=== PATIENT | male | born 1980 | race African-American/Black ===

== ENCOUNTER 2017-11-10 10:30 | Emergency (ER) | payer OTHER ==
[~2017-11-10] VITALS: Ht 180.3 cm; Wt 179.2 kg
[~2017-11-10 10:30] MED LIST: ANDRODERM1 EACH TD; CLON.1 PO; CYCL10 PO; IBUP800 PO; Keflex500 MG PO; LOSA25 PO; METF500 PO; Norco 5-325 Ta1 EACH PO; PROP10 PO; Zegerid 20 MG1 EACH PO
== END 2017-11-10 12:10 | disposition home or self-care (01) ==
LOC: ER 10:30
DX: S52.022A Displaced fracture of olecranon process without intraarticular extension of left ulna, initial encounter for closed fracture (principal); Z79.84 Long term (current) use of oral hypoglycemic drugs; Z79.899 Other long term (current) drug therapy; I10 Essential (primary) hypertension; Z87.891 Personal history of nicotine dependence; X58.XXXA Exposure to other specified factors, initial encounter
CPT/HCPCS: 73080; 99283

== ENCOUNTER 2018-01-06 12:35 | Day surgery (SDC) | payer OTHER ==
[~2018-01-06] VITALS: Ht 180.3 cm; Wt 176.7 kg
[2018-01-06] MEDS ORDERED: CHOL10002 (14:12)
[2018-01-06] MEDS ORDERED: Zegerid 40 MG1 EACH PO (14:12)
== END 2018-01-06 16:56 | disposition home or self-care (01) ==
LOC: ORSCSDS 12:35
PROVIDERS: Orthopaedic Surgery
PROC: 01N50ZZ Release Median Nerve, Open Approach (ICD-10-PCS; principal; 2018-01-06 15:00)
DX: G56.02 Carpal tunnel syndrome, left upper limb (principal); E11.9 Type 2 diabetes mellitus without complications; I10 Essential (primary) hypertension; F41.8 Other specified anxiety disorders; F31.9 Bipolar disorder, unspecified; Z79.84 Long term (current) use of oral hypoglycemic drugs; Z79.899 Other long term (current) drug therapy; Z87.891 Personal history of nicotine dependence
CPT/HCPCS: 82947; J0171; J0690; J2250; J2405; J3010; J7120

== ENCOUNTER → 2018-02-01 | Outpatient (CLI) | payer OTHER ==
[~2018-02-01] MED LIST changes: +CHOL10002; +Zegerid 40 MG1 EACH PO
[2018-02-06 05:53] LABS: COTININE Negative ng/mL (Cutoff=300)
== END ==
LOC: LAB SRC 10:58 → LAB SHORT 10:58
PROVIDERS: Physician Assistant
DX: E66.01 Morbid (severe) obesity due to excess calories (principal)

== ENCOUNTER 2018-12-07 08:46 | Day surgery (SDC) | payer OTHER ==
[~2018-12-07] VITALS: Ht 180.3 cm; Wt 152.9 kg
[~2018-12-07 08:46] MED LIST changes: +Depo-Testos200 MG/ML IM; +MELO7.5 PO; +METF500C PO; +ZOLOFT20 MG/ML PO
--- NOTE | 2018-12-07 09:08 | NUR ---
History, Chart, Medications and Allergies reviewed before start of procedure. Patient States Post-Procedure ride home has been arranged.
--- NOTE | 2018-12-07 10:56 | NUR ---
BLOOD SUGAR 94, PT AWAKE ALERT, TAKING CRANBERRY JUICE, NO C/O. DRG TO RIGHT WRIST C/D/I.
--- NOTE | 2018-12-07 11:47 | NUR ---
ASSUMED CARE FROM [facility]. PT IN STEP S/P CARPAL TUNNEL RELEASE. RIGHT HAND DRESSING D&I. DENIES NO PAIN. VSS. Discharge instructions reviewed with patient. Patient verbalizes understanding. Copy given to patient to take home. Patient States Post-Procedure ride home has been arranged. Discharged via wheelchair to private car for ride home.
== END 2018-12-07 11:25 | disposition home or self-care (01) ==
LOC: ORSCMMR 08:46 → ORD 10:00 → ORSCMMR 11:25 → ORD 12:55
PROVIDERS: Orthopaedic Surgery
PROC: 01N50ZZ Release Median Nerve, Open Approach (ICD-10-PCS; principal; 2018-12-07 10:00)
DX: G56.01 Carpal tunnel syndrome, right upper limb (principal); I10 Essential (primary) hypertension; G47.33 Obstructive sleep apnea (adult) (pediatric); E11.9 Type 2 diabetes mellitus without complications; Z79.899 Other long term (current) drug therapy; E66.01 Morbid (severe) obesity due to excess calories; K21.9 Gastro-esophageal reflux disease without esophagitis
CPT/HCPCS: 82947; J0690; J2250; J2405; J7120

== ENCOUNTER 2021-01-27 06:57 | Day surgery (SDC) | payer OTHER ==
[~2021-01-27] VITALS: Ht 180.3 cm; Wt 143.9 kg
[2021-01-27] MEDS ORDERED: LASIX40 MG (07:23)
[2021-01-27] MEDS ORDERED: ALPRAZOLAM0.5 MG (07:23)
[2021-01-27] MEDS ORDERED: HYDCHL25 (07:23)
[2021-01-27] MEDS ORDERED: Vitamin B-121000 MCG (07:24)
[2021-01-27] MEDS ORDERED: IRON18 MG (07:24)
[2021-01-27] MEDS ORDERED: CYAN1000I (07:24)
[2021-01-27] MEDS ORDERED: OYSTER SHELL 51 EACH (07:25)
[2021-01-27] MEDS ORDERED: OMEP20ER (07:25)
--- NOTE | 2021-01-27 08:18 | NUR ---
01/27/21 0818 URVASHI LE BREATHING TX AND 2MG VERSED ADMINISTERED
== END 2021-01-27 08:50 | disposition home or self-care (01) ==
LOC: ORSCSDS 06:57
PROVIDERS: Student in an Organized Health Care Education/Training Program
PROC: 0DB48ZX Excision of Esophagogastric Junction, Via Natural or Artificial Opening Endoscopic, Diagnostic (ICD-10-PCS; principal; 2021-01-27 08:00)
PROC: 0DB68ZX Excision of Stomach, Via Natural or Artificial Opening Endoscopic, Diagnostic (ICD-10-PCS; principal; 2021-01-27 08:00)
DX: R10.9 Unspecified abdominal pain (principal); K92.1 Melena; I10 Essential (primary) hypertension; Z98.84 Bariatric surgery status; E11.9 Type 2 diabetes mellitus without complications; K21.9 Gastro-esophageal reflux disease without esophagitis; K44.9 Diaphragmatic hernia without obstruction or gangrene; E66.9 Obesity, unspecified; E66.01 Morbid (severe) obesity due to excess calories; Z68.41 Body mass index [BMI] 40.0-44.9, adult; Z79.899 Other long term (current) drug therapy
CPT/HCPCS: 82947; 88305; 88313; 88342; J0330; J0461; J2250; J2405; J2704; J7120

== ENCOUNTER 2021-08-11 08:15 | Day surgery (SDC) | payer OTHER ==
[~2021-08-11] VITALS: Ht 180.3 cm; Wt 142.7 kg
[~2021-08-11 08:15] MED LIST changes: +ALBU90OI; +ALPRAZOLAM0.5 MG; +CYAN1000I; +FERROUS GLUCON240 MG; +HYDCHL25; +IRON18 MG; +LASIX40 MG; +OMEP20ER; +OYSTER SHELL 51 EACH; +Vitamin B-121000 MCG
--- NOTE | 2021-08-11 09:20 | NUR ---
08/11/21 0920 URVASHI LE USED IN EXAM.
== END 2021-08-11 10:00 | disposition home or self-care (01) ==
LOC: ORSCSDS 08:15
PROVIDERS: Student in an Organized Health Care Education/Training Program
PROC: 0DBG8ZX Excision of Left Large Intestine, Via Natural or Artificial Opening Endoscopic, Diagnostic (ICD-10-PCS; principal; 2021-08-11 09:30)
PROC: 0DBF8ZX Excision of Right Large Intestine, Via Natural or Artificial Opening Endoscopic, Diagnostic (ICD-10-PCS; principal; 2021-08-11 09:30)
PROC: 0DBN8ZX Excision of Sigmoid Colon, Via Natural or Artificial Opening Endoscopic, Diagnostic (ICD-10-PCS; principal; 2021-08-11 09:30)
DX: R19.7 Diarrhea, unspecified (principal); D12.5 Benign neoplasm of sigmoid colon; K64.8 Other hemorrhoids; K62.89 Other specified diseases of anus and rectum; I10 Essential (primary) hypertension; Z87.891 Personal history of nicotine dependence; E11.9 Type 2 diabetes mellitus without complications; E66.9 Obesity, unspecified; F41.8 Other specified anxiety disorders; Z68.41 Body mass index [BMI] 40.0-44.9, adult; Z79.899 Other long term (current) drug therapy
CPT/HCPCS: 82947; 88305; J2250; J2704; J7120

== ENCOUNTER 2021-08-30 12:47 | Emergency (ER) | payer OTHER ==
[~2021-08-30] VITALS: Ht 180.3 cm; Wt 144.0 kg
[2021-08-30] MEDS ORDERED: CYCL10 PO (14:13)
[2021-08-30] MEDS ORDERED: LIDO700A20 TOP (14:13)
== END 2021-08-30 14:25 | disposition home or self-care (01) ==
LOC: ER 12:47
DX: G89.29 Other chronic pain (principal); M54.50 Low back pain, unspecified; I10 Essential (primary) hypertension; Z88.6 Allergy status to analgesic agent; Z79.899 Other long term (current) drug therapy; Z87.891 Personal history of nicotine dependence
CPT/HCPCS: 72131; 96372; 99283-25; A9270; J1885

== ENCOUNTER 2023-11-18 02:38 | Emergency (ER) | payer OTHER ==
[~2023-11-18] VITALS: Ht 180.3 cm; Wt 128.4 kg
[~2023-11-18 02:38] MED LIST changes: +LIDO700A20 TOP
[2023-11-18 03:02] VITALS: BP 142/101
[2023-11-18] MEDS ORDERED: Cephalexin Monohydrate 250 MG/5 ML UD BTL PO ONE (03:25)
[2023-11-18] MEDS ORDERED: CEPH500 PO (04:27)
== END 2023-11-18 04:40 | disposition home or self-care (01) ==
LOC: ER 02:38
DX: M21.612 Bunion of left foot (principal); M79.645 Pain in left finger(s); Z68.39 Body mass index [BMI] 39.0-39.9, adult; Z88.5 Allergy status to narcotic agent; Z79.899 Other long term (current) drug therapy; I10 Essential (primary) hypertension; Z87.891 Personal history of nicotine dependence
CPT/HCPCS: 73140; 73630; A9270